=== PATIENT | female | born 1930 | race Caucasian/White ===

== ENCOUNTER 2016-03-16 11:51 | Emergency (ER) | payer MEDICARE, BC ==
[2016-04-06] MEDS ORDERED: CALTRATE-600 D600 MG PO (13:15)
[2016-04-06] MEDS ORDERED: COLACE-DPS100 MG PO (13:15)
[2016-04-06] MEDS ORDERED: CARDIZEM CD DP120 MG PO (13:15)
[2016-04-06] MEDS ORDERED: MILK OF MAGNESI10 ML PO (13:16)
[2016-04-06] MEDS ORDERED: MAALOX DPS30 ML PO (13:17)
[2016-04-06] MEDS ORDERED: FLEXERIL DPS5 MG PO (13:17)
[2016-04-06] MEDS ORDERED: BACITRACIN--O.0.9 GM TP (13:17)
[2016-04-06] MEDS ORDERED: TYLENOL DPS325 MG PO (13:18)
[2016-04-06] MEDS ORDERED: ASA CHILDREN'S81 MG PO (13:19)
--- NOTE | 2016-04-21 16:40 | ER ---
ADMIT: 03/16/2016 RM/LOC: ER [facility] MR#: [id number] [address] [address] [place] [address] Emergency Room Report SEX: F AGE: 85 : 1930 DATE: 03/16/2016 CHIEF COMPLAINT: Question of syncope. HISTORY OF PRESENT ILLNESS: An 85-year-old, white female coming in from long-term. There is a question whether she had syncope or not at that time. She did not sustain any trauma. She had it hit the floor. PAST MEDICAL HISTORY: I refer you to old records. MEDICATIONS: See med list. ALLERGIES: SEE LIST FROM NURSE. REVIEW OF SYSTEMS: RESPIRATORY: Negative. MUSCULOSKELETAL: She has no complaints. PHYSICAL EXAMINATION: GENERAL: Does not appear to be acutely distressed. VITAL SIGNS: Stable, afebrile. HEENT: Conjunctivae are clear. Nose is clear. Mouth - mucous membranes are moist. NECK: Supple, no masses. RESPIRATORY: No retracting. HEART: Regular rate and rhythm. GI: Abdomen is nontender, no rebound, guarding, rigidity or organomegaly. SKIN: Warm, pink and dry. EXTREMITIES: Range of motion is grossly intact in the upper and lower extremities. SUTURE GAUGER: Alert and oriented. Motor and sensory functions are intact. RADIOGRAPHIC DATA: EKG, nothing acute. Chest x-ray, nothing acute. DIAGNOSES: Syncope versus near-syncope. TREATMENT: I did speak with to Dr. De La Rosa. He did see the patient and he feels that it is safe to send her back to the long-term. CONDITION ON DISCHARGE: Fair. EDIT: 04/21/2016 1055 Mor Jones MD/ annemarie JOB #: [id number] CC: Mor Jones MD, Attending Physician Phillip De La Rosa MD, Family Physician
[2016-05-17] MEDS ORDERED: COLACE-DPS100 MG PO (18:32)
[2016-05-17] MEDS ORDERED: MAALOX DPS30 ML PO (18:32)
[2016-05-17] MEDS ORDERED: TYLENOL DPS325 MG PO (18:32)
[2016-05-17] MEDS ORDERED: CARTIA XT120 MG PO (18:33)
[2016-05-17] MEDS ORDERED: ASA CHILDREN'S81 MG PO (18:33)
[2016-05-17] MEDS ORDERED: CALTRATE-600 D600 MG PO (18:33)
== END 2016-03-16 15:45 | disposition home or self-care (01) ==
LOC: ER 11:51
DX: R55 Syncope and collapse (principal); Z79.82 Long term (current) use of aspirin; Z79.899 Other long term (current) drug therapy

== ENCOUNTER 2016-04-04 06:13 | Observation (INO) | payer MEDICARE, BC ==
[~2016-04-04] VITALS: Ht 167.6 cm; Wt 87.7 kg
--- NOTE | 2016-04-05 08:51 | OR ---
ADMIT: 04/04/2016 RM/LOC: W.[address] [facility] MR#: [id number] [address] [address] [place] [address] Operative/Delivery Room Report SEX: F AGE: 85 : 1930 SURGERY DATE: 04/04/2016 SURGEON: Eugene Prabhakar MD PREOPERATIVE DIAGNOSIS: Type 2 odontoid fracture. POSTOPERATIVE DIAGNOSIS: Type 2 odontoid fracture. ROUNDER AND BACKER: None. PROCEDURE: Anterior odontoid screw fixation utilizing Medtronic screw set with intraoperative use of biplanar fluoroscopy. DESCRIPTION: After gaining informed consent, the patient was taken to operative theater, placed under general endotracheal anesthesia in supine position. A time-out was utilized to ascertain the correct site and side of surgery as well as the other pertinent patient historical information. Counts were obtained beginning and end of the case with no change betwixt 2. Antibiotics were given before 1 hour of incision. The fluoroscope was brought into the field and lined up. It appeared that her mildly retrolisthetic odontoid was reasonably well aligned in an AP and lateral fluoroscopy. At this point, she was prepped and draped in usual sterile fashion. The incision was fashioned, this was then taken down to the anterior spinal column at the C2-3 junction. Once this was completed, the guide tube was placed protecting this area, docking it in the midline on AP and at the anterior lip on lateral fluoroscopy imaging. The K-wire was then brought into the field very cautiously, advanced in midline plane. I was unable to angle it perfectly through the apex of the odontoid. It came out to slightly posterior to that and the K-wire was maintained at all times in a position that was not advanced any further than just breaching the cortex of the tip of the odontoid. Once this was handled, the drill was brought into the field and this area was drilled and then a lag screw was brought in. Initially, 44 mm lag screw was utilized. This was placed, but then realizing that I would not likely be able to fully lag the screw at that length, that screw was backed out after not having quite completely placed it and a 40 mm screw was brought in to attempt a lag down the dens better. This screw was then placed without sign of complication in a midline position with what appeared to be acceptable fluoroscopic images with it slightly posterior to the apex of dens. There was ADMIT: 04/04/2016 RM/LOC: W.[address] [facility] MR#: [id number] [address] [address] [place] [address] Operative/Delivery Room Report SEX: F AGE: 85 : 1930 no sign of anesthetic change or complication. At this point, the cannulated screw was waxed. There was no sign of CSF or blood coming from the screw. The wound was closed with simple inverted interrupted 2-0 Vicryl with subcuticular 3-0 Stratafix on the skin. COMPLICATIONS: None. ESTIMATED BLOOD LOSS: 10 mL. SPECIMEN: None. DISPOSITION: Taken to postanesthesia care unit for CAT scan. Eugene Prabhakar MD/ annemarie JOB #: [id number] CC: Eugene Prabhakar, Attending Physician Mendez Reeder, Family Physician
[2016-04-06] MEDS ORDERED: CARDIZEM CD DP120 MG PO (13:15)
[2016-04-06] MEDS ORDERED: COLACE-DPS100 MG PO (13:15)
[2016-04-06] MEDS ORDERED: CALTRATE-600 D600 MG PO (13:15)
[2016-04-06] MEDS ORDERED: MILK OF MAGNESI10 ML PO (13:16)
[2016-04-06] MEDS ORDERED: MAALOX DPS30 ML PO (13:17)
[2016-04-06] MEDS ORDERED: FLEXERIL DPS5 MG PO (13:17)
[2016-04-06] MEDS ORDERED: BACITRACIN--O.0.9 GM TP (13:17)
[2016-04-06] MEDS ORDERED: TYLENOL DPS325 MG PO (13:18)
[2016-04-06] MEDS ORDERED: ASA CHILDREN'S81 MG PO (13:19)
[2016-05-17] MEDS ORDERED: TYLENOL DPS325 MG PO (18:32)
[2016-05-17] MEDS ORDERED: MAALOX DPS30 ML PO (18:32)
[2016-05-17] MEDS ORDERED: COLACE-DPS100 MG PO (18:32)
[2016-05-17] MEDS ORDERED: ASA CHILDREN'S81 MG PO (18:33)
[2016-05-17] MEDS ORDERED: CARTIA XT120 MG PO (18:33)
[2016-05-17] MEDS ORDERED: CALTRATE-600 D600 MG PO (18:33)
== END 2016-04-05 14:00 ==
LOC: WOR 06:13 → 5MS 10:43 → EDSTATUS 11:04 → SSS 14:57 → 5MS 04-05 14:00
PROVIDERS: ADMIT Neurological Surgery
PROC: 0PS304Z Reposition Cervical Vertebra with Internal Fixation Device, Open Approach (ICD-10-PCS; principal; 2016-04-04)
DX: S12.110A Anterior displaced Type II dens fracture, initial encounter for closed fracture (principal); J44.9 Chronic obstructive pulmonary disease, unspecified; I48.91 Unspecified atrial fibrillation; K21.9 Gastro-esophageal reflux disease without esophagitis; I10 Essential (primary) hypertension; F41.9 Anxiety disorder, unspecified; F32.9 Major depressive disorder, single episode, unspecified; Z90.49 Acquired absence of other specified parts of digestive tract; Z96.641 Presence of right artificial hip joint; Z90.710 Acquired absence of both cervix and uterus; Z79.899 Other long term (current) drug therapy; Z87.440 Personal history of urinary (tract) infections

== ENCOUNTER 2016-05-13 13:56 | Inpatient (IN) | payer MEDICARE, BC ==
[~2016-05-13] VITALS: Ht 167.6 cm; Wt 40.0 kg
[~2016-05-13 13:56] MED LIST: ASA CHILDREN'S81 MG PO; BACITRACIN--O.0.9 GM TP; CALTRATE-600 D600 MG PO; CARDIZEM CD DP120 MG PO; COLACE-DPS100 MG PO; FLEXERIL DPS5 MG PO; MAALOX DPS30 ML PO; MILK OF MAGNESI10 ML PO; TYLENOL DPS325 MG PO
[2016-05-17] MEDS ORDERED: TYLENOL DPS325 MG PO (18:32)
[2016-05-17] MEDS ORDERED: MAALOX DPS30 ML PO (18:32)
[2016-05-17] MEDS ORDERED: COLACE-DPS100 MG PO (18:32)
[2016-05-17] MEDS ORDERED: CARTIA XT120 MG PO (18:33)
[2016-05-17] MEDS ORDERED: ASA CHILDREN'S81 MG PO (18:33)
[2016-05-17] MEDS ORDERED: CALTRATE-600 D600 MG PO (18:33)
--- NOTE | 2016-05-18 08:23 | HP ---
ADMIT: 05/13/2016 RM/LOC: 532 [facility] MR#: [id number] [address] [id number] Gustavo MELÉNDEZ [address] [place] [address] History and Physical SEX: F AGE: 85 : 1930 DATE OF SERVICE: REASON FOR HOSPITALIZATION: Declining mental function. HISTORY: This 85-year-old female patient, who is frail and failing at home was brought to the emergency room by her family with declining mental status. The ER called me for admission to "sorted out." Ultimately before dismissing to the floor from the emergency room, she was found to have 2+ leukocytes on urinalysis, so we are covering her for urinary tract infection which has since begun to grow gram-negative rods. PAST MEDICAL HISTORY: She has a medical history of dementia, malnutrition, C- spine fracture, SVT, depression, anxiety, atrial fibrillation, right hip surgery, anemia, and CKD. SOCIAL HISTORY: She has been living with her family, does not smoke. FAMILY HISTORY: Noncontributory. HOME MEDICATIONS: Consist of: 1. Aspirin. 2. Caltrate. 3. Cartia. She takes 120 mg Cartia a day. REVIEW OF SYSTEMS: Patient cannot really answer any specific questions. She states that I am here "on doctor's orders." PHYSICAL EXAMINATION: GENERAL: She is arousable, she is not really cooperative. She is refusing to take her oral Bactrim therapy. She is thin and frail in general appearance. HEART: Regular. LUNGS: Clear. ADMIT: 05/13/2016 RM/LOC: 532 [facility] MR#: [id number] [address] [address] Gustavo MELÉNDEZ [address] [place] [address], [place] [address] History and Physical SEX: F AGE: 85 : 1930 ABDOMEN: Soft. EXTREMITIES: Reveal no edema. LABORATORY DATA: Her BUN is 36, creatinine 1.8, sodium 146, hemoglobin 9.5. UA 2+ leukocytes, culture gram-negative rods. IMPRESSION: Mental status decline, urinary tract infection, hypernatremia, dehydration, malnutrition, dementia, chronic kidney disease. PLAN: Admit, IV fluids, nutritional support, cover with IV antibiotic therapy and monitor mental status. We will also ask [employer] to assist with planning for post hospital cares. Mendez Reeder DO/ annemarie JOB #: [id number] CC: Mendez Reeder, Attending Physician Mendez Reeder, Family Physician
--- NOTE | 2016-05-22 21:25 | ER ---
ADMIT: 05/13/2016 RM/LOC: 532 [facility] MR#: [id number] [address] [address] Gustavo MELÉNDEZ [address] [place] [address] Emergency Room Report SEX: F AGE: 85 : 1930 DATE: 05/13/2016 CHIEF COMPLAINT: Change in mental status. HISTORY OF PRESENT ILLNESS: This is a confused 85-year-old female, brought to the ED this afternoon by her daughter and son secondary to change in mental status. Patient's daughter reports that for approximately the past day, she has been acting differently. She is not as talkative or alert as she typically is. They are concerned that she has another urinary tract infection as she previously had one in February of 2016. Per family's report, she is confused at baseline but sheis typically able to ambulate independetly with with a walker.However, they do state over the past day, she has become more agitated and increasingly difficult to care for. The patient overall is uncommunicative,does not respond to questioning. All she states is that she has pain all over. PAST MEDICAL HISTORY: Significant for cervical spine fracture at the base of the dens, February 2016; osteoarthritis; dementia; anxiety; depression; SVT; and pneumonia. The patient was previously on Coumadin as well as digoxin for her atrial fibrillation. These measures were withdrawn after her hospitalization in February of 2016. SURGICAL HISTORY: Includes a right total hip arthroplasty and cataract. COURSE IN THE EMERGENCY ROOM: Patient was seen and examined. She is confused and agitated. Physical exam is difficult to complete secondary to her inability to cooperate with commands. She does transfer from the wheelchair to the bed under her own power. Displays no evidence of overt muscle abnormality. She is disoriented to person, place, and time. Labs were drawn, remarkable for lactic acid 1.2. Urine shows positive nitrites, 2+ leukocyte esterase, 21 wbc's per high-power field. Culture was set up. CMP; sodium 146, chloride 115, potassium 4.6, glucose 109, creatinine 1.8, calcium 8.1, and albumin 2.8. White count 5.7, hemoglobin 9.5, hematocrit 30.7, and platelets 154. EKG shows sinus rhythm with a rate of 90. IMPRESSION: ADMIT: 05/13/2016 RM/LOC: 532 [facility] MR#: [id number] [address] [address] Gustavo MELÉNDEZ [address] [place] [address] Emergency Room Report SEX: F AGE: 85 : 1930 1. Urinary tract infection. 2. Dementia. DISPOSITION: I did discuss with the patient's family the findings today consistent with a urinary tract infection. Given her vital signs and lab results, I did give them the option to either discharge from the department tonight with oral antibiotics and follow up with Dr. Reeder early next week. The patient's family did request admission secondary to increased agitation and their concerns that they would be unable to provide her care until her baseline returns. I did phone Dr. Reeder who accepts the patient for admission. She was given a dose of Levaquin IV in the ER and discharged from the department in stable condition. SHINE Grey / Nikolas Haney MD / annemarie JOB #: [id number] CC: Mendez Reeder DO, Attending Physician Mendez Reeder DO, Family Physician
--- NOTE | 2016-06-20 08:05 | DS ---
ADMIT: 05/14/2016 RM/LOC: 532 [facility] MR#: [id number] [id number] [place], [place] [address] Gustavo MELÉNDEZ [facility] [address] [place] [address] Discharge Summary SEX: F AGE: 85 : 1930 ADMISSION DATE: 05/14/2016 DISCHARGE DATE: 05/16/2016 REASON FOR HOSPITALIZATION: Mental status changes. HISTORY: An 86-year-old female patient, frail and generally failing at home. Family noted declining mental status and brought her to the emergency room to "have it sorted out." She was ultimately found to have a urinary tract infection. HOSPITAL COURSE: Consisted of admission to the hospital, IV fluids for her dehydration, IV antibiotic therapy, nutrition evaluation, and supplementation. Her dehydration and urinary tract symptoms improved. We noted a decline in her general dementia and attempted to further assess and monitor this. She was not able to undergo MRI scan. Her urine grew out Klebsiella oxytocia which was widely susceptible. Her general status improved with hydration and antibiotic management. Her mental status improved and on 05/15, we began making arrangements for dismissal to halfway per family's request. On 05/16, the family was at bedside. We felt she was appropriate for dismissal. She was dismissed with. FINAL DIAGNOSES: 1. Urinary tract infection to be treated with oral Levaquin. 2. Dementia. 3. Malnutrition. 4. Hypernatremia. 5. Dehydration. 6. Chronic kidney disease. She was to return to see me within 2 weeks. Mendez Reeder DO/ annemarie JOB #: [id number] CC: Mendez Reeder DO, Attending Physician Mendez Reeder DO, Family Physician
== END 2016-05-16 15:00 | DRG 690 ==
LOC: ER 13:56 → 5MS 16:00
PROVIDERS: ADMIT Internal Medicine
DX: N39.0 Urinary tract infection, site not specified (principal); E87.0 Hyperosmolality and hypernatremia; E46 Unspecified protein-calorie malnutrition; I48.91 Unspecified atrial fibrillation; B96.89 Other specified bacterial agents as the cause of diseases classified elsewhere; E86.0 Dehydration; F03.90 Unspecified dementia, unspecified severity, without behavioral disturbance, psychotic disturbance, mood disturbance, and anxiety; Z68.1 Body mass index [BMI] 19.9 or less, adult; F32.9 Major depressive disorder, single episode, unspecified; M19.90 Unspecified osteoarthritis, unspecified site; R33.9 Retention of urine, unspecified; D64.9 Anemia, unspecified; N18.9 Chronic kidney disease, unspecified; F41.9 Anxiety disorder, unspecified; Z96.641 Presence of right artificial hip joint; Z79.82 Long term (current) use of aspirin

== ENCOUNTER 2016-07-19 22:07 | Emergency (ER) | payer MEDICARE, BC ==
[~2016-07-19 22:07] MED LIST changes: +CARTIA XT120 MG PO
--- NOTE | 2016-07-21 14:26 | ER ---
ADMIT: 07/19/2016 RM/LOC: ER [facility] MR#: [id number] [address] [place], [place] [address] Gustavo MELÉNDEZ [facility] [address] [place] [address] Emergency Room Report SEX: F AGE: 86 : 1930 DATE: 07/19/2016 ADDENDUM: CHIEF COMPLAINT: Nosebleed. HISTORY OF PRESENT ILLNESS: This is an 86-year-old female, who developed a nosebleed just 2 hours prior to arrival. By the time she arrived, she is clamped by EMS and the bleeding has stopped. She has a fresh clot that I am able to pull out. I am not able to see the exact bleeding site. I did do a couple squirts of Afrin here in the emergency room and then sent home with her having that continue for the next 2 days and follow up with her primary care physician or ENT if symptoms continue. CLINICAL IMPRESSION: Epistaxis, anterior on the left side. SHINE Mcbride / Alex Mckinnon MD / annemarie JOB #: [id number] CC: Alex Mckinnon MD, Attending Physician Mendez Reeder DO, Family Physician
== END 2016-07-19 23:00 | disposition home or self-care (01) ==
LOC: ER 22:07
DX: R04.0 Epistaxis (principal); N18.9 Chronic kidney disease, unspecified; F03.90 Unspecified dementia, unspecified severity, without behavioral disturbance, psychotic disturbance, mood disturbance, and anxiety; Z79.82 Long term (current) use of aspirin; Z79.899 Other long term (current) drug therapy